=== PATIENT | female | born 1985 | race Two or more races ===

== ENCOUNTER 2021-05-10 10:59 | Emergency (ER) | payer OTHER ==
[~2021-05-10] VITALS: Ht 162.6 cm; Wt 59.0 kg
[~2021-05-10 10:59] MED LIST: IMODIUM A-D2 MG PO; LEVSIN/SL0.125 MG SL
[2021-05-10] MEDS ORDERED: CYCLOBENZAPRINE10 MG PO ×2 (11:17→15:02)
[2021-05-10] MEDS ORDERED: NABUMETONE750 MG PO ×2 (11:17→15:02)
[2021-05-10] MEDS ORDERED: GRALISE600 MG PO (11:18)
[2021-05-10] MEDS ORDERED: NORFLEX100MG PO (14:56)
[2021-05-10] MEDS ORDERED: KETO10TA2 PO (14:56)
== END 2021-05-10 15:23 | disposition home or self-care (01) ==
LOC: ER 10:59
DX: M54.50 Low back pain, unspecified (principal)